=== PATIENT | female | born 1965 | race Caucasian/White ===

== ENCOUNTER → 2018-09-21 | Day surgery (SDC) | payer OTHER ==
--- NOTE | 2018-09-24 17:57 | PATH ---
Cytology Non-Gynecological Report Patient Name: MANJEET TOBIN [facility]. Rec. #: [id number] /Age/Gender: 1965 (Age: 53) / F Account: [id number] Location: RADIOLOGY INTER Taken: 09/21/2018 Received: 09/21/2018 Reported: 09/24/2018 Physicians: Solo Harmon M.D. Specimen(s) Received RIGHT LOBE THYROID FNA Clinical History Right lobe, 3.57 x 1.98 x 1.99 cm Final Diagnosis THYROID, RIGHT LOBE, FINE NEEDLE ASPIRATION: SATISFACTORY FOR EVALUATION. BETHESDA CLASS II: BENIGN. CYTOLOGIC FINDINGS SHOW A BENIGN FOLLICULAR NODULE WITH FEATURES SUGGESTIVE OF CHRONIC LYMPHOCYTIC THYROIDITIS. SMALL FOLLICULAR CELLS DISPERSED CLUSTERS AND SHEETS IN A BACKGROUND OF ABUNDANT COLLOID, SCATTERED LYMPHOCYTES, RARE LYMPHOHISTIOCYTIC AGGREGATES, HEMOSIDERIN LADEN MACROPHAGES, AND LYMPHOID TANGLES PRESENT. Comment: Suggest clinical/radiologic and serologic correlation. Electronically Signed Erin Loomis M.D. Gross Description Received are eight direct smears, four of which are air-dried and Diff-Quik stained, and four of which are alcohol fixed and Pap stained. Also received is 20 ml of bloody formalin from which one cellblock is prepared.
== END | disposition home or self-care (01) ==
LOC: JRADIR 09:19
PROVIDERS: ATTEND Internal Medicine Endocrinology, Diabetes & Metabolism
PROC: 0G9K3ZX Drainage of Thyroid Gland, Percutaneous Approach, Diagnostic (ICD-10-PCS; principal; 2018-09-21)
DX: E04.1 Nontoxic single thyroid nodule (principal)
CPT/HCPCS: 76942; 88173; 88305-TC

== ENCOUNTER 2019-11-12 10:51 | Emergency (ER) | payer OTHER ==
[2019-11-12 10:59] VITALS: PULSE 117; BMI 37.8
--- NOTE | 2019-11-12 10:59 | PDOC ---
Rapid Medical Evaluation Time Seen by Provider: 11/12/19 10:56 Medical Evaluation: 11/12/19 10:57 CC: sent from urgent care clinic for dvt vs PE, calf pain jj, with elevated d dimer, no sob, cp EXam: jj calf tenderness , - homans, lcta, tachy Plan: labs, iv, Discharge Disposition - Diagnosis Calf pain - Referrals - Patient Instructions - Post Discharge Activity
--- NOTE | 2019-11-12 11:31 | PDOC ---
Attending Attestation - Resident Resident Name: Pelon Karimi - ED Attending Attestation I have performed the following: I have examined & evaluated the patient, The case was reviewed & discussed with the resident, I agree w/resident's findings & plan, Exceptions are as noted - HPI HPI: 54 yo F history thyroid nodule sent by urgent care for elevated D-dimer, r/o DVT. Patietn has been having lower extremity pain with ambulation for the past 2 weeks. Improves with rest. Denies swelling, palpitations, cp, SOB. - Physicial Exam PE: GENERAL: Awake, alert, and fully oriented, in no acute distress HEAD: No signs of trauma EYES: PERRLA, EOMI, sclera anicteric, conjunctiva clear ENT: Auricles normal inspection, hearing grossly normal, nares patent, oropharynx clear without exudates. Moist mucosa NECK: Normal ROM, supple, no lymphadenopathy, JVD, or masses LUNGS: Breath sounds equal, clear to auscultation bilaterally. No wheezes, and no crackles HEART: Tachycardic with regular rhythm, normal S1 and S2, no murmurs, rubs or gallops ABDOMEN: Soft, nontender, normoactive bowel sounds. No guarding, no rebound. No masses EXTREMITIES: Normal range of motion, 1+ pitting edema to ankles B/L. No clubbing or cyanosis. No cords, erythema, or tenderness NEUROLOGICAL: Cranial nerves II through XII grossly intact. Normal speech, normal gait. Motor and sensation intact SKIN: Warm, dry, normal turgor, no rashes or lesions noted. - Medical Decision Making Pt with negative DVT study, but with known elevated D-dimer as an outpatient. With persistent tachycardia that is unexplained. CTA chest negative for PE. DC home. Discharge - Discharge Information Problems reviewed: Yes Clinical Impression/Diagnosis: Calf pain Qualifiers: Laterality: unspecified laterality Qualified Code(s): M79.669 - Pain in unspecified lower leg Condition: Stable Disposition: HOME - Follow up/Referral Referrals: Justin Isaac MD [Primary Care Provider] - - Patient Discharge Instructions Patient Printed Discharge Instructions: DI for Leg Pain Additional Instructions: Please make a follow up appointment with your primary care doctor. Your CT scan showed a mildly enlarged right hilar lymph node. This will need a repeat CT scan. Please take Tylenol as needed for your pain. If you experience any new, worsening, or concerning symptoms, including worsening leg pain, swelling, chest pain, palpitations, difficulty breathing, or any other concerns, please return to the emergency department. Lele agnieszka carmine de seguimiento con wolf mdico de atencin primaria. Wolf tomografa computarizada mostr un ganglio linftico hilar derecho levemente agrandado. [place] necesitar repetir la tomografa computarizada. [place] Tylenol segn sea necesario para wolf dolor. Si experimenta algn sntoma nuevo, que empeora o preocupa, incluido un empeoramiento del dolor en las piernas, hinchazn, dolor en el pecho, palpitaciones, dificultad para respirar o cualquier otra inquietud, regrese al departamento de emergencias. - Post Discharge Activity
--- NOTE | 2019-11-12 11:32 | PDOC ---
History of Present Illness - General Chief Complaint: Back Pain Stated Complaint: SENT BY PCP\RT LEG SWOLLEN Time Seen by Provider: 11/12/19 10:56 - History of Present Illness Initial Comments: Yaritza Pool is 54 y/o female with PMH significant for thyroid nodule sent in from urgent care today for elevated D-dimer. Reports that she has been having lower extremity pain for the past two weeks. States that the pain is worse with walking. No falls. No chest pain. No shortness of breath. No headache. No abd pain. Not taking OCPs. No recent travel. Never smoker. Past History - Medical History Allergies/Adverse Reactions: Allergies Allergy/AdvReac Type Severity Reaction Status Date / Time No Known Allergies Allergy Verified 11/12/19 10:59 Home Medications: Ambulatory Orders NK [No Known Home Medication] 11/12/19 COPD: No Thyroid Disease: Yes - Psycho-Social/Smoking History Smoking History: Never smoked Information on smoking cessation initiated: No - Substance Abuse Hx (Audit-C & DAST Scrn) How often the patient has a drink containing alcohol: Never Score: In Men: 4 or > Positive; In Women: 3 or > Positive: 0 Screen Result (Pos requires Nsg. Audit-10AR): Negative Review of Systems - Review of Systems Comments:: GENERAL/CONSTITUTIONAL: No fever or chills. No weakness._ HEAD, EYES, EARS, NOSE AND THROAT: No change in vision. No change in hearing. No sore throat._ CARDIOVASCULAR: No chest pain or shortness of breath_ RESPIRATORY: Denies cough, hemoptysis_ GASTROINTESTINAL: No nausea, vomiting, diarrhea or constipation._ GENITOURINARY: No dysuria, frequency, or change in urination._ MUSCULOSKELETAL: Reports bilateral lower extremity pain. No neck or back pain._ SKIN: No rash_ NEUROLOGIC: No headache, vertigo, loss of consciousness, or change in strength/sensation._ ENDOCRINE: No increased thirst. No abnormal weight change_ HEMATOLOGIC/LYMPHATIC: No anemia, easy bleeding, or history of blood clots._ ALLERGIC/IMMUNOLOGIC: No hives or skin allergy._ *Physical Exam - Vital Signs Last Vital Signs Temp Pulse Resp BP Pulse Ox 98.7 F 117 H 19 115/68 100 11/12/19 10:57 11/12/19 10:57 11/12/19 10:57 11/12/19 10:57 11/12/19 10:57 - Physical Exam GENERAL: Awake, alert, and oriented to person/place/time, in no acute distress_ HEAD: No signs of trauma, normocephalic, atraumatic _ EYES: PERRLA, EOMI, sclera anicteric, conjunctiva clear_ ENT: Hearing grossly normal, nares patent, oropharynx clear without exudates. No uvular deviation. Moist mucosa_ NECK: Normal ROM, supple, no lymphadenopathy, JVD, or masses_ LUNGS: No distress, speaks in full sentences, clear to auscultation bilaterally _ HEART: Regular rate and rhythm, normal S1 and S2, no murmurs appreciated, peripheral pulses normal and equal bilaterally._ ABDOMEN: Soft, nontender, normoactive bowel sounds. No guarding, no rebound. No masses_ EXTREMITIES: Normal inspection, Normal range of motion, 1+ pitting edema. Negative Mariluz's. Negative straight leg bilaterally. TTP bilateral thighs and calves. No clubbing or cyanosis. Warm to touch bilaterally. DP/PT 2+ bilaterally. NEUROLOGICAL: Cranial nerves II through XII grossly intact. Normal speech, normal gait, no focal sensorimotor deficits _ SKIN: Warm, Dry, normal turgor, no rashes or lesions noted_ ED Treatment Course - LABORATORY CBC & Chemistry Diagram: 11/12/19 11:55 11/12/19 11:55 Medical Decision Making - Medical Decision Making 11/12/19 11:31 54F sent in from urgent care for elevated D-dimer. Reports lower extremity pain for the past two weeks. -cbc, cmp -ekg, trop, cxr -coags -tylenol 11/12/19 11:35 EKG shows 107 bpm, sinus tachycardia, no axis deviation, MA 126, QTc 432, no ST elevation/depression. 11/12/19 13:18 US shows no signs of DVT bilaterally. 11/12/19 13:18 CXR negative for acute chest pathology. 11/12/19 13:19 Labs reviewed. Laboratory Last Values WBC 9.3 K/mm3 (4.0-10.0) 11/12/19 11:55 RBC 4.53 M/mm3 (3.60-5.2) 11/12/19 11:55 Hgb 10.5 GM/dL (10.7-15.3) L 11/12/19 11:55 Hct 32.8 % (32.4-45.2) 11/12/19 11:55 MCV 72.4 fl (80-96) L 11/12/19 11:55 MCH 23.1 pg (25.7-33.7) L 11/12/19 11:55 MCHC 31.9 g/dl (32.0-36.0) L 11/12/19 11:55 RDW 14.4 % (11.6-15.6) 11/12/19 11:55 Plt Count 491 K/MM3 (134-434) H 11/12/19 11:55 MPV 7.6 fl (7.5-11.1) 11/12/19 11:55 Absolute Neuts (auto) 6.6 K/mm3 (1.5-8.0) 11/12/19 11:55 Neutrophils % 70.8 % (42.8-82.8) 11/12/19 11:55 Lymphocytes % 16.7 % (8-40) 11/12/19 11:55 Monocytes % 5.7 % (3.8-10.2) 11/12/19 11:55 Eosinophils % 6.0 % (0-4.5) H 11/12/19 11:55 Basophils % 0.8 % (0-2.0) 11/12/19 11:55 Nucleated RBC % 0 % (0-0) 11/12/19 11:55 PT with INR 13.70 SEC (9.7-13.0) H 11/12/19 11:55 INR 1.16 (0.83-1.09) H 11/12/19 11:55 PTT (Actin FS) 28.0 SECONDS (25.2-36.5) 11/12/19 11:55 Sodium 142 mmol/L (136-145) 11/12/19 11:55 Potassium 4.4 mmol/L (3.5-5.1) 11/12/19 11:55 Chloride 108 mmol/L (98-107) H 11/12/19 11:55 Carbon Dioxide 28 mmol/L (21-32) 11/12/19 11:55 Anion Gap 6 MMOL/L (8-16) L 11/12/19 11:55 BUN 11.7 mg/dL (7-18) 11/12/19 11:55 Creatinine 0.6 mg/dL (0.55-1.3) 11/12/19 11:55 Est GFR (CKD-EPI)AfAm 118.09 11/12/19 11:55 Est GFR (CKD-EPI)NonAf 101.89 11/12/19 11:55 Random Glucose 98 mg/dL (74-106) 11/12/19 11:55 Calcium 9.2 mg/dL (8.5-10.1) 11/12/19 11:55 Total Bilirubin 0.2 mg/dL (0.2-1) 11/12/19 11:55 AST 23 U/L (15-37) 11/12/19 11:55 ALT 23 U/L (13-61) 11/12/19 11:55 Alkaline Phosphatase 73 U/L (45-117) 11/12/19 11:55 Creatine Kinase 60 U/L (26-192) 11/12/19 11:55 Troponin I 0.04 ng/ml (0.00-0.05) 11/12/19 11:55 B-Natriuretic Peptide 190.9 pg/ml (5-125) H 11/12/19 11:55 Total Protein 7.3 g/dl (6.4-8.2) 11/12/19 11:55 Albumin 2.7 g/dl (3.4-5.0) L 11/12/19 11:55 11/12/19 13:31 Pt reassessed. HR 98, O2 96% RA. 11/12/19 15:14 Labs reviewed. Laboratory Last Values WBC 9.3 K/mm3 (4.0-10.0) 11/12/19 11:55 RBC 4.53 M/mm3 (3.60-5.2) 11/12/19 11:55 Hgb 10.5 GM/dL (10.7-15.3) L 11/12/19 11:55 Hct 32.8 % (32.4-45.2) 11/12/19 11:55 MCV 72.4 fl (80-96) L 11/12/19 11:55 MCH 23.1 pg (25.7-33.7) L 11/12/19 11:55 MCHC 31.9 g/dl (32.0-36.0) L 11/12/19 11:55 RDW 14.4 % (11.6-15.6) 11/12/19 11:55 Plt Count 491 K/MM3 (134-434) H 11/12/19 11:55 MPV 7.6 fl (7.5-11.1) 11/12/19 11:55 Absolute Neuts (auto) 6.6 K/mm3 (1.5-8.0) 11/12/19 11:55 Neutrophils % 70.8 % (42.8-82.8) 11/12/19 11:55 Lymphocytes % 16.7 % (8-40) 11/12/19 11:55 Monocytes % 5.7 % (3.8-10.2) 11/12/19 11:55 Eosinophils % 6.0 % (0-4.5) H 11/12/19 11:55 Basophils % 0.8 % (0-2.0) 11/12/19 11:55 Nucleated RBC % 0 % (0-0) 11/12/19 11:55 PT with INR 13.70 SEC (9.7-13.0) H 11/12/19 11:55 INR 1.16 (0.83-1.09) H 11/12/19 11:55 PTT (Actin FS) 28.0 SECONDS (25.2-36.5) 11/12/19 11:55 D-Dimer 1791 ng/ml (0-500) H 11/12/19 14:40 Sodium 142 mmol/L (136-145) 11/12/19 11:55 Potassium 4.4 mmol/L (3.5-5.1) 11/12/19 11:55 Chloride 108 mmol/L (98-107) H 11/12/19 11:55 Carbon Dioxide 28 mmol/L (21-32) 11/12/19 11:55 Anion Gap 6 MMOL/L (8-16) L 11/12/19 11:55 BUN 11.7 mg/dL (7-18) 11/12/19 11:55 Creatinine 0.6 mg/dL (0.55-1.3) 11/12/19 11:55 Est GFR (CKD-EPI)AfAm 118.09 11/12/19 11:55 Est GFR (CKD-EPI)NonAf 101.89 11/12/19 11:55 Random Glucose 98 mg/dL (74-106) 11/12/19 11:55 Calcium 9.2 mg/dL (8.5-10.1) 11/12/19 11:55 Total Bilirubin 0.2 mg/dL (0.2-1) 11/12/19 11:55 AST 23 U/L (15-37) 11/12/19 11:55 ALT 23 U/L (13-61) 11/12/19 11:55 Alkaline Phosphatase 73 U/L (45-117) 11/12/19 11:55 Creatine Kinase 60 U/L (26-192) 11/12/19 11:55 Troponin I 0.04 ng/ml (0.00-0.05) 11/12/19 11:55 B-Natriuretic Peptide 190.9 pg/ml (5-125) H 11/12/19 11:55 Total Protein 7.3 g/dl (6.4-8.2) 11/12/19 11:55 Albumin 2.7 g/dl (3.4-5.0) L 11/12/19 11:55 Urine Color Yellow 11/12/19 11:55 Urine Appearance Clear 11/12/19 11:55 Urine pH 6.5 (5.0-8.0) 11/12/19 11:55 Ur Specific [place] 1.018 (1.010-1.035) 11/12/19 11:55 Urine Protein Trace (NEGATIVE) 11/12/19 11:55 Urine Glucose (UA) Negative (NEGATIVE) 11/12/19 11:55 Urine Ketones Negative (NEGATIVE) 11/12/19 11:55 Urine Blood Negative (NEGATIVE) 11/12/19 11:55 Urine Nitrite Negative (NEGATIVE) 11/12/19 11:55 Urine Bilirubin Negative (NEGATIVE) 11/12/19 11:55 Urine Urobilinogen 2.0 mg/dL (0.2-1.0) H 11/12/19 11:55 Ur Leukocyte Esterase Negative (NEGATIVE) 11/12/19 11:55 D-dimer elevated. Will obtain CTA chest. 11/12/19 16:52 CTA chest shows: No CT evidence of pulmonary embolism or other acute intrathoracic pathology. Mild subpleural scarring is seen within the lower chest bilaterally. A mildly enlarged nonspecific 1.3 cm right hilar lymph node is noted. Correlate clinically and with 2 month follow-up contrast enhanced CT to document stability and lack of developing pathology (unless a prior contrast-enhanced CT exam is available from a different facility for direct co mparison). Mild to moderate enlargement of the lower pole of the right thyroid lobe is seen without obvious interval change. Hepatic steatosis. Plan to d/c home with PCP f/u. All questions answered. Return precautions given. Pt verbalized understanding and agreement with plan. Discharge - Discharge Information Problems reviewed: Yes Clinical Impression/Diagnosis: Calf pain Condition: Stable Disposition: HOME - Admission No - Follow up/Referral Referrals: Justin Isaac MD [Primary Care Provider] - - Patient Discharge Instructions Patient Printed Discharge Instructions: DI for Leg Pain Additional Instructions: Please make a follow up appointment with your primary care doctor. Your CT scan showed a mildly enlarged right hilar lymph node. This will need a repeat CT scan. Please take Tylenol as needed for your pain. If you experience any new, worsening, or concerning symptoms, including worsening leg pain, swelling, chest pain, palpitations, difficulty breathing, or any other concerns, please return to the emergency department. Lele agnieszka carmine de seguimiento con wolf mdico de atencin primaria. Wolf tomografa computarizada mostr un ganglio linftico hilar derecho levemente agrandado. [place] necesitar repetir la tomografa computarizada. [place] Tylenol segn sea necesario para wolf dolor. Si experimenta algn sntoma nuevo, que empeora o preocupa, incluido un empeoramiento del dolor en las piernas, hinchazn, dolor en el pecho, palpitaciones, dificultad para respirar o cualquier otra inquietud, regrese al departamento de emergencias. - Post Discharge Activity
[2019-11-12 12:13] LABS: BASO % 0.8 % (0-2.0); HEMATOCRIT 32.8 % (32.4-45.2); HEMOGLOBIN 10.5 GM/dL (10.7-15.3); LYMPH % 16.7 % (8-40); MCH 23.1 pg (25.7-33.7); MCHC 31.9 g/dl (32.0-36.0); MEAN CELL VOLUME 72.4 fl (80-96); MEAN PLT VOLUME 7.6 fl (7.5-11.1); MONO % 5.7 % (3.8-10.2); NEUT % 70.8 % (42.8-82.8); PLATELET COUNT 491 K/MM3 (134-434); RBC 4.53 M/mm3 (3.60-5.2); RDW 14.4 % (11.6-15.6); WHITE BLOOD COUNT 9.3 K/mm3 (4.0-10.0)
[2019-11-12 12:22] LABS: INR 1.16 (0.83-1.09); PROTHROMBIN TIME (PATIENT) 13.7 SEC (9.7-13.0)
[2019-11-12 12:46] LABS: ALBUMIN 2.7 g/dl (3.4-5.0); BILIRUBIN,TOTAL 0.2 mg/dL (0.2-1); BLOOD UREA NITROGEN 11.7 mg/dL (7-18); CALCIUM 9.2 mg/dL (8.5-10.1); CREATININE 0.6 mg/dL (0.55-1.3); POTASSIUM 4.4 mmol/L (3.5-5.1); TOT PROT 7.3 g/dl (6.4-8.2)
[2019-11-12 13:08] LABS: N-TERMINAL BNP 190.9 pg/ml (5-125)
[2019-11-12 13:47] LABS: PH,URINE 6.5 (5.0-8.0); URINE APPEARANCE CLEAR; URINE BILIRUBIN NEGATIVE (NEGATIVE); URINE COLOR YELLOW; URINE GLUCOSE (UA) NEGATIVE (NEGATIVE); URINE KETONE NEGATIVE (NEGATIVE); URINE LEUK ESTERASE NEGATIVE (NEGATIVE); URINE NITRITE NEGATIVE (NEGATIVE); URINE PROTEIN TRACE (NEGATIVE)
--- NOTE | 2019-11-12 16:09 | EKG ---
Test Reason : Blood Pressure : / mmHG Vent. Rate : 107 BPM Atrial Rate : 107 BPM P-R Int : 126 ms QRS Dur : 074 ms QT Int : 324 ms P-R-T Axes : 066 038 019 degrees QTc Int : 432 ms SINUS TACHYCARDIA POSSIBLE LEFT ATRIAL ENLARGEMENT BORDERLINE ECG Confirmed by MD JORGE, JOHNNIE ([id number]) on 11/12/2019 4:09:27 PM Referred By: Confirmed By:JOHNNIE PATEL MD
[2019-11-12] MEDS ORDERED: ACETAMINOPHEN 500 MG TABLET (FP) PO ONE (17:17)
[2019-11-12] MEDS ORDERED: ACETAMINOPHEN 325 MG TABLET (FP) ONE (17:19)
[2019-11-12 17:31] VITALS: BP 103/59; TEMP 100.6
== END 2019-11-12 17:20 | disposition home or self-care (01) ==
LOC: JER 10:51
DX: M79.661 Pain in right lower leg (principal); M79.662 Pain in left lower leg
CPT/HCPCS: 36415; 71045-TC-FY; 71275-TC; 80053; 81003; 82550; 83880; 84484; 85025; 85379; 85610; 85730; 93005; 93010; 93970-TC; 99285-25; Q9967

== ENCOUNTER 2020-01-14 15:16 | Emergency (ER) | payer OTHER ==
[2020-01-14 15:22] VITALS: BP 160/82; PULSE 125; TEMP 98.6; BMI 27.4
--- NOTE | 2020-01-14 15:34 | PDOC ---
Rapid Medical Evaluation Chief Complaint: Palpitations Medical Evaluation: Allergies Allergy/AdvReac Type Severity Reaction Status Date / Time No Known Allergies Allergy Verified 01/14/20 15:18 Vital Signs Temp Pulse Resp BP Pulse Ox 98.6 F 125 H 18 160/82 100 01/14/20 15:20 01/14/20 15:20 01/14/20 15:20 01/14/20 15:20 01/14/20 15:20 01/14/20 15:29 54 yo F c/o palpitations, sob, fatigue, [place] intermittently x 1 month. denies recent travel, cp, back pain, abd pain, f/c. sent from an urgent care center for abnormal ecg. VS: HR 123 speaking full sentences A/P: palpitations labs, trop, cxr, ecg Discharge Disposition - Diagnosis Palpitations - Referrals - Patient Instructions - Post Discharge Activity
--- NOTE | 2020-01-14 17:25 | PDOC ---
History of Present Illness - General Chief Complaint: Palpitations Stated Complaint: CHEST PAIN Time Seen by Provider: 01/14/20 16:56 - History of Present Illness Initial Comments: 01/14/20 18:10 54 F with nodules on thyroid, HTN presented to the ED for abnormal EKG from an urgent care. Her primary concern is her toes numbness; this happened over 4 weeks now. In addition, she has arms tightness for 2 weeks. She denies chest pa in, nausea, vomiting, abdominal pain. 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 ROS GENERAL/CONSTITUTIONAL: No fever or chills. No weakness. HEAD, EYES, EARS, NOSE AND THROAT: No change in vision. No ear pain or discharge. No sore throat. CARDIOVASCULAR: No chest pain or shortness of breath RESPIRATORY: No cough, wheezing, or hemoptysis. GASTROINTESTINAL: No nausea, vomiting, diarrhea or constipation. GENITOURINARY: No dysuria, frequency, or change in urination. MUSCULOSKELETAL: No joint or muscle swelling or pain. No neck or back pain. SKIN: No rash NEUROLOGIC: No headache, vertigo, loss of consciousness, or change in strength/sensation. ENDOCRINE: No increased thirst. No abnormal weight change HEMATOLOGIC/LYMPHATIC: No anemia, easy bleeding, or history of blood clots. ALLERGIC/IMMUNOLOGIC: No hives or skin allergy. PE GENERAL: Awake, alert, and fully oriented, in no acute distress, truncal obesity . Speak Estonian. HEAD: No signs of trauma, normocephalic, atraumatic EYES: PERRLA, EOMI, sclera anicteric, conjunctiva clear ENT: Auricles normal inspection, hearing grossly normal, nares patent, oropharynx clear without, no gross thyromegaly. exudates. Moist mucosa NECK: Normal ROM, supple, no lymphadenopathy, JVD, or masses LUNGS: No distress, speaks full sentences, clear to auscultation bilaterally HEART: Regular rate and rhythm, normal S1 and S2, no murmurs, rubs or gallops, peripheral pulses normal and equal bilaterally. ABDOMEN: Soft, nontender, normoactive bowel sounds. No guarding, no rebound. No masses EXTREMITIES : Normal inspection, Normal range of motion, no edema. No clubbing or cyanosis. NEUROLOGICAL: Cranial nerves II through XII grossly intact. Normal speech, normal gait, no focal sensorimotor deficits SKIN: Warm, Dry, normal turgor, no rashes or lesions noted 01/14/20 19:09 01/14/20 21:20 Past History - Medical History Allergies/Adverse Reactions: Allergies Allergy/AdvReac Type Severity Reaction Status Date / Time No Known Allergies Allergy Verified 01/14/20 15:18 Home Medications: Ambulatory Orders NK [No Known Home Medication] 11/12/19 COPD: No Thyroid Disease: Yes - Immunization History Immunization Up to Date: Yes - Psycho-Social/Smoking History Smoking History: Never smoked - Substance Abuse Hx (Audit-C & DAST Scrn) How often the patient has a drink containing alcohol: Never Score: In Men: 4 or > Positive; In Women: 3 or > Positive: 0 Screen Result (Pos requires Nsg. Audit-10AR): Negative *Physical Exam - Vital Signs Last Vital Signs Temp Pulse Resp BP Pulse Ox 98.6 F 125 H 18 160/82 100 01/14/20 15:20 01/14/20 15:20 01/14/20 15:20 01/14/20 15:20 01/14/20 15:20 ED Treatment Course - LABORATORY CBC & Chemistry Diagram: 01/14/20 15:43 01/14/20 15:43 Medical Decision Making - Medical Decision Making 01/14/20 21:21 54 F with nodules on thyroid, HTN presented to the ED for abnormal EKG from an urgent care. Plan: basic lab work, EKG, chest Xray, UA/UC, TSH, free T4 EKG showed Sinus tachycardia , low voltage qrs, carter rate 113, qtc 449. Lab work came back unremarkable. Trop is negative. TSH and free T4 are within normal limit. Patient was given the report of her old biopsy, labwork. Stable to discharge and follow up with PCP about thyroid problem. Discharge - Discharge Information Problems reviewed: Yes Clinical Impression/Diagnosis: Palpitations Condition: Good Disposition: HOME - Follow up/Referral Referrals: Celestina Baptiste DO [Primary Care Provider] - - Patient Discharge Instructions Patient Printed Discharge Instructions: DI for Hyperthyroidism Additional Instructions: You were seen in the ED for complaints of high heart rate. In the ED you were evaluated with bloodwork Your results were unremarkable. There does not appear to be an acute need for immediate hospitalization. You are advised to follow up with your Primary Care Physician within 1 week. Continue with the appointment to see the endocrine doctor. Return to the ED immediately if you experience worsening heart palpitation, chest pain, nausea vomiting, or any other new symptoms. Fue visto en el servicio de urgencias por quejas de frecuencia cardaca glenn. En el servicio de urgencias te evaluaron con anlisis de ana paula Tus resultados no fueron notables. No parece apollo agnieszka necesidad aguda de hospitalizacin inmediata. Se le recomienda hacer un seguimiento con wolf mdico de atencin primaria en el plazo de 1 semana. Contine con la carmine para elias al mdico endocrino. Regrese al servicio de urgencias de inmediato si experimenta un empeoramiento de las palpitaciones del corazn, dolor de pecho, nuseas, vmitos o cualquier otro sntoma nuevo. Print Language: GREENLAND[place] - Post Discharge Activity
[2020-01-14 17:44] LABS: BASO % 0.6 % (0-2.0); EOS % 5.2 % (0-4.5); HEMATOCRIT 32.6 % (32.4-45.2); HEMOGLOBIN 10.5 GM/dL (10.7-15.3); LYMPH % 19.1 % (8-40); MCH 22.4 pg (25.7-33.7); MCHC 32.3 g/dl (32.0-36.0); MEAN CELL VOLUME 69.3 fl (80-96); MEAN PLT VOLUME 7.9 fl (7.5-11.1); MONO % 3.8 % (3.8-10.2); NEUT % 71.3 % (42.8-82.8); PLATELET COUNT 575 K/MM3 (134-434); RDW 18.4 % (11.6-15.6); WHITE BLOOD COUNT 11.1 K/mm3 (4.0-10.0)
--- OUTSIDE RECORDS SUMMARY | 2020-01-14 17:58 | XMS ---
:1965 Author Organization [facility] Support Name Relationship Address Phone [place] Unavailable [facility] [place] [address] UE Unavailable Unavailable Unavailable WADE RODRIGUEZ FRIEND [address] [place] [address] Bubba, Pilar Unavailable [address] [place] [address] Re-disclosure Warning The records that you are about to access may contain information from federally- assisted alcohol or drug abuse programs. If such information is present, then the following federally mandated warning applies: This information has been disclosed to you from records protected by federal confidentiality rules (42 CFR part 2). The federal rules prohibit you from making any further disclosure of this information unless further disclosure is expressly permitted by the written consent of the person to whom it pertains or as otherwise permitted by 42 CFR part 2. A general authorization for the release of medical or other information is NOT sufficient for this purpose. The Federal rules restrict any use of the information to criminally investigate or prosecute any alcohol or drug abuse patient.The records that you are about to access may contain highly sensitive health information, the redisclosure of which is protected by Article 27-F of the [facility] Public Health law. If you continue you may haveaccess to information: Regarding HIV / AIDS; Provided by facilities licensed or operated by the [facility] Office of Mental Health; or Provided by the [facility] Office for People With Developmental Disabilities. If such information is present, then the following [facility] mandated warning applies: This information has been disclosed to you from confidential records which are protected by state law. State law prohibits you from making any further disclosure of this information without the specific written consent of the person to whom it pertains, or as otherwise permitted by law. Any unauthorized further disclosure in violation of state law may result in a fine or long term sentence or both. A general authorization for the release of medical or other information is NOT sufficient authorization for further disclosure. Allergies and Adverse Reactions Type Description Substance Reaction Status Data Source(s ) No Known Allergies No Known Allergies No Known Allergies eCW3 ([facility]) No Known Allergies No Known Allergies No Known Allergies eCW3 ([facility]) No Known Allergies No Known Allergies No Known Allergies eCW3 ([facility]) No Known Allergies No Known Allergies No Known Allergies eCW3 ([facility]) No Known Allergies No Known Allergies No Known Allergies eCW3 ([facility]) No Known Allergies No Known Allergies No Known Allergies eCW3 ([facility]) No Information No Information No Information eC W2 ([facility]) No Known Allergies No Known Allergies No Known Allergies eCW2 ([facility]) No Known Allergies No Known Allergies No Known Allergies eCW3 ([facility]) No Known Allergies No Known Allergies No known allergies eCW3 ([facility]) No Known Allergies No Known Allergies No known allergies eCW3 ([facility]) Encounters Encounter Providers Location Date Indications Data Source(s ) Outpatient [facility] 01/28/2019 eCW3 ([facility] 12:00:00 AM [facility] EDT - Care) 01/28/2019 12:00:00 AM EDT Outpatient [facility] 01/18/2019 eCW3 ([facility] 12:00:00 AM [facility] EDT - Care) 01/18/2019 12:00:00 AM EDT Outpatient [facility] 10/24/2018 eCW3 ([facility] 12:00:00 AM [facility] EDT - Care) 10/24/2018 12:00:00 AM EDT Outpatient [facility] 10/02/2018 eCW3 ([facility] 12:00:00 AM [facility] EDT - Care) 10/02/2018 12:00:00 AM EDT Outpatient [facility] 09/03/2018 eCW3 ([facility] 12:00:00 AM [facility] EDT - Care) 09/03/2018 12:00:00 AM EDT Outpatient [facility] 08/23/2018 eCW3 ([facility] 12:00:00 AM [facility] EDT - Care) 08/23/2018 12:00:00 AM EDT Outpatient [facility] 07/06/2018 eCW3 ([facility] A28 12:00:00 AM [facility] EDT - Care) 07/06/2018 12:00:00 AM EDT Outpatient [facility] 06/20/2018 eCW3 ([facility] A28 12:00:00 AM [facility] EST - Care) 06/20/2018 12:00:00 AM [facility] 05/21/2018 eCW2 ([facility] 12:[facility]:00 AM [facility] EST Care) [facility] 05/21/2018 eCW3 ([facility] A28 12:00:00 AM [facility] EST - Care) 05/21/2018 12:00:00 AM [facility] 05/07/2018 eCW2 ([facility] 12:00:00 [facility]) [facility] 04/30/2018 eCW2 ([place] [facility] 12:00:00 [facility] Care) [facility] 03/19/2018 eCW2 ([facility] 12:00:[facility]) [facility] 02/01/2018 eCW2 ([place] [facility] 12:00:00 AM [facility] EDT Care) [facility] 01/23/2018 eCW2 ([place] [facility] 12:00:[facility]) [facility] 01/10/2018 eCW2 ([place] [facility] 12:00:[facility] ED[facility]) Immunizations Vaccine Date Status Description Data Source(s) No Known Immunizations completed eCW2 ([facility]) No Known Immunizations completed eCW2 ([facility]) Medications Medication Brand Start Product Dose Route Administrative Pharmacy St atus Indications Reaction Description Data Name Date Form Instructions Instructions Source(s) ferrous Ferrou .0 active Ferrous eCW 3 sulfate 325 s 2019 {tabl Sulfate 325 ([facility] Oral Sulfat 12:00: et} (65 Fe) MG Ri elias Tablet e 325 00 AM Health Ferrous (65 EDT Care) Sulfate 325 Fe) MG (65 Fe) MG Docusate Colace .0 active Colace 100 eCW3 Sodium 100 100 MG 2020 {caps MG ([place] [facility] Oral 12:00: ule_a [place] Capsule 00 AM s_ne Health [Colace] EDT ded} Care) Colace 100 MG ferrous Ferrou .0 active Ferrous eCW 3 sulfate 325 s 2020 {tabl Sulfate 325 ([facility] Oral Sulfat 12:00: et} (65 Fe) MG Ri elias Tablet e 325 00 AM Health Ferrous (65 EDT Care) Sulfate 325 Fe) MG (65 Fe) MG Vitamin C Vitami .0 active Vitamin C eCW3 Plus Wild n C 2019 {tabl Plus Wild (Semaj Hutchinson Hips Plus 12:00: et} Evangelina [facility] [place] [facility] 500 MG Wild 00 AM 500 MG [facility] EDT Care) Hips 500 MG Docusate Colace .0 active Colace 100 eCW3 Sodium 100 100 MG 2020 {caps MG ([place] MG Oral 12:00: ule_a [place] Capsule 00 AM s_ne Health [Colace] EDT ded} Care) Colace 100 MG Vitamin C Vitami .0 active Vitamin C eCW3 Plus Wild n C 2020 {tabl Plus Wild (Semaj Hutchinson Hips Plus 12:00: et} Evangelina Hips [place] [facility] 500 MG Wild 00 AM 500 MG [facility] EDT Care) Hips 500 MG Daily Daily 07/04/ active Daily eCW3 Multivitami Multiv 2020 Multivitami n ([facility] n - itamin 12:00: - [place] - 00 AM Health EDT Care) Daily Daily 07/04/ active Daily eCW3 Multivitami Multiv 2020 Multivitami n ([facility] n - itamin 12:00: - [place] - 00 AM Health EDT Care) Collagen-Ch UNK 01/28/ active Collagen- Cho eCW3 ond-Hyaluro 2018 nd-Hyaluroni ([facility] shay Acid 12:00: c Acid [place] 400-80-30 00 AM 400-80-30 MG H ealth MG EDT Care) Collagen-Ch UNK 01/28/ suspend Collagen -Cho eCW3 ond-Hyaluro 2019 ed nd-Hyaluroni ([facility] shay Acid 12:00: c Acid [place] 400-80-30 00 AM 400-80-30 MG H ealth MG EDT Care) Collagen-Ch UNK 01/28/ active Collagen- Cho eCW3 ond-Hyaluro 2019 nd-Hyaluroni ([facility] shay Acid 12:00: c Acid [place] 400-80-30 00 AM 400-80-30 MG H ealth MG EDT Care) Vitamin D UNK .0 active Vitamin D e CW3 (Ergocalcif 2019 {caps (Ergocalcife ([facility] jose) 25574 12:00: ule} rol) 47800 [place] UNIT 00 AM UNIT Health EDT Care) Collagen-Ch UNK 01/28/ active Collagen- Cho eCW3 ond-Hyaluro 2019 nd-Hyaluroni ([facility] shay Acid 12:00: c Acid [place] 400-80-30 00 AM 400-80-30 MG H ealth MG EDT Care) Vitamin D UNK 1.0 active Vitamin D e CW3 (Ergocalcif 2018 {caps (Ergocalcife ([facility] jose) 17344 12:00: ule} rol) 32804 [place] UNIT 00 AM UNIT Health EDT Care) Collagen-Ch UNK 01/28/ suspend Collagen -Cho eCW3 ond-Hyaluro 2019 ed nd-Hyaluroni ([facility] shay Acid 12:00: c Acid [place] 400-80-30 00 AM 400-80-30 MG H ealth MG EDT Care) Vitamin D UNK 1.0 active Vitamin D e CW3 (Ergocalcif 2018 {caps (Ergocalcife ([facility] jose) 22436 12:00: ule} rol) 32789 [place] UNIT 00 AM UNIT Health EDT Care) Vitamin D UNK 1.0 active Vitamin D e CW3 (Ergocalcif 2019 {caps (Ergocalcife ([facility] jose) 68207 12:00: ule} rol) 83249 [place] UNIT 00 AM UNIT Health EDT Care) Collagen-Ch UNK 01/28/ active Collagen- Cho eCW3 ond-Hyaluro 2018 nd-Hyaluroni ([facility] shay Acid 12:00: c Acid [place] 400-80-30 00 AM 400-80-30 MG H ealth MG EDT Care) Hydroxyzine HydrOX .0 suspend HydrOX Yzine eCW3 Hydrochlori Yzine 2018 {tabl ed HCl 50 MG ( [facility] de 50 MG HCl 50 12:00: et_as [place] Oral Tablet MG 00 AM _need Health HydrOXYzine EDT ed} Care) HCl 50 MG Hydroxyzine HydrOX .0 active HydrOXY zine eCW3 Hydrochlori Yzine 2018 {tabl HCl 50 MG ( [facility] de 50 MG HCl 50 12:00: et_as [place] Oral Tablet MG 00 AM _need Health HydrOXYzine EDT ed} Care) HCl 50 MG Hydroxyzine HydrOX .0 suspend HydrOX Yzine eCW3 Hydrochlori Yzine 2018 {tabl ed HCl 50 MG ( [facility] de 50 MG HCl 50 12:00: et_as [place] Oral Tablet MG 00 AM _need Health HydrOXYzine EDT ed} Care) HCl 50 MG Hydroxyzine HydrOX .0 active HydrOXY zine eCW3 Hydrochlori Yzine 2018 {tabl HCl 50 MG ( [facility] de 50 MG HCl 50 12:00: et_as [place] Oral Tablet MG 00 AM _need Health HydrOXYzine EDT ed} Care) HCl 50 MG Hydroxyzine HydrOX .0 active HydrOXY zine eCW3 Hydrochlori Yzine 2018 {tabl HCl 50 MG ( [facility] de 50 MG HCl 50 12:00: et_as [place] Oral Tablet MG 00 AM _need Health HydrOXYzine EDT ed} Care) HCl 50 MG Hydroxyzine HydrOX .0 active HydrOXY zine eCW3 Hydrochlori Yzine 2018 {tabl HCl 50 MG ( [facility] de 50 MG HCl 50 12:00: et_as [place] Oral Tablet MG 00 AM _need Health HydrOXYzine EDT ed} Care) HCl 50 MG Melatonin Melato 10/24/ active Melatonin 10 eCW3 10 mg leti 10 2019 mg ([facility] mg 12:00: [facility] 00 AM Health EDT Care) Melatonin Melato 07// suspend Melatoni n 10 eCW3 10 mg leti 2018 ed mg ([facility] mg 12:00: [facility] 00 AM Health EDT Care) Melatonin Melato 07// active Melatonin 10 eCW3 10 mg leti 2019 mg ([facility] mg 12:00: [facility] 00 AM Health EDT Care) Melatonin Melato 07// suspend Melatoni n 10 eCW3 10 mg 2018 ed mg ([facility] mg 12:00: [facility] 00 AM Health EDT Care) Melatonin Melato 07// active Melatonin 10 eCW3 10 mg leti 2018 mg ([facility] mg 12:00: [facility] 00 AM Health EDT Care) Melatonin Melato 07// active Melatonin 10 eCW3 10 mg leti 2018 mg ([facility] mg 12:00: [facility] 00 AM Health EDT Care) Melatonin Melato 07// active Melatonin 10 eCW3 10 mg leti 2018 mg ([facility] mg 12:00: [facility] 00 AM Health EDT Care) RA Panty RA 07/06/ active RA Panty eCW 3 Liners - Panty 2019 Liners - ([place] Liners 12:00: [facility] - 00 AM Health EDT Care) RA Panty RA 07/06/ active RA Panty eCW 3 Liners - Panty 2019 Liners - ([place] Liners 12:00: [facility] - 00 AM Health EDT Care) RA Panty RA 07/06/ active RA Panty eCW 3 Liners - Panty 2019 Liners - ([place] Liners 12:00: [facility] - 00 AM Health EDT Care) ammonium Lac-Hy 07/06/ 1.0 active Lac-Hydrin eCW3 lactate 120 drin 2018 {appl 12 % ([facility] MG/ML 12 % 12:00: icati [place] Topical 00 AM on_to Health Cream EDT _affe Care) [Lac-Hydrin cted_ ] area} Lac-Hydrin 12 % RA Panty RA 07/06/ active RA Panty eCW 3 Liners - Panty 2019 Liners - ([place] Liners 12:00: [facility] - 00 AM Health EDT Care) RA Panty RA 07/06/ active RA Panty eCW 3 Liners - Panty 2019 Liners - ([place] Liners 12:00: [facility] - 00 AM Health EDT Care) RA Panty RA 07/06/ active RA Panty eCW 3 Liners - Panty 2019 Liners - ([place] Liners 12:00: [facility] - 00 AM Health EDT Care) RA Panty RA 07/06/ active RA Panty eCW 3 Liners - Panty 2019 Liners - ([place] Liners 12:00: [facility] - 00 AM Health EDT Care) RA Panty RA 07/06/ active RA Panty eCW 3 Liners - Panty 2019 Liners - ([place] Liners 12:00: [facility] - 00 AM Health EDT Care) ammonium Lac-Hy .0 active Lac-Hydrin eCW3 lactate 120 2018 {appl 12 % ([facility] MG/ML 12 % 12:00: icati [place] Topical 00 AM on_to Health Cream EDT _affe Care) [Lac-Hydrin cted_ ] area} Lac-Hydrin 12 % ammonium Lac-Hy .0 active Lac-Hydrin eCW3 lactate 120 2018 {appl 12 % ([facility] MG/ML 12 % 12:00: icati [place] Topical 00 AM on_to Health Cream EDT _affe Care) [Lac-Hydrin cted_ ] area} Lac-Hydrin 12 % RA Giselly RA 07/06/ active RA Panty eCW 3 Liners - Panty 2019 Liners - ([place] Liners 12:00: [facility] - 00 AM Health EDT Care) Lidocaine 5 Lidoca 06/20/ suspend Lidoca ine 5 eCW3 % ine 5 2019 ed % (Hall % 12:00: [facility] 00 AM Health EST Care) Lidocaine 5 Lidoca 06/20/ suspend Lidoca ine 5 eCW3 % ine 5 2019 ed % (Hall % 12:00: [facility] 00 AM Health EST Care) Lidocaine 5 Lidoca 06/20/ suspend Lidoca ine 5 eCW3 % ine 5 2019 ed % (Hall % 12:00: [facility] 00 AM Health EST Care) Lidocaine 5 Lidoca 06/20/ suspend Lidoca ine 5 eCW3 % ine 5 2019 ed % (Hall % 12:00: [facility] 00 AM Health EST Care) Lidocaine 5 Lidoca 06/20/ suspend Lidoca ine 5 eCW3 % ine 5 2019 ed % (Hall % 12:00: [facility] 00 AM Health EST Care) Lidocaine 5 Lidoca 06/20/ suspend Lidoca ine 5 eCW3 % ine 5 2019 ed % (Hall % 12:00: [facility] 00 AM Health EST Care) Lidocaine 5 Lidoca 06/20/ suspend Lidoca ine 5 eCW3 % ine 5 2019 ed % (Hall % 12:00: [facility] 00 AM Health EST Care) Lidocaine 5 Lidoca 06/20/ suspend Lidoca ine 5 eCW3 % ine 5 2019 ed % (Hall % 12:00: [facility] 00 AM Health EST Care) Lidocaine 5 Lidoca 06/20/ suspend Lidoca ine 5 eCW3 % ine 5 2019 ed % (Hall % 12:00: [facility] 00 AM Health EST Care) Polyvinyl Artifi 05/21/ active Artificia l eCW3 Alcohol cial 2018 Tears 1.4 % ([place] 0.014 ML/ML Tears 12:00: [place] Ophthalmic 1.4 % 00 AM Health Solution EST Care) Artificial Tears 1.4 % Polyvinyl Artifi 05/21/ active Artificia l eCW3 Alcohol cial 2018 Tears 1.4 % ([place] 0.014 ML/ML Tears 12:00: [facility] Ophthalmic 1.4 % 00 AM Health Solution EST Care) Artificial Tears 1.4 % Polyvinyl Artifi 05/21/ active Artificia l eCW3 Alcohol cial 2018 Tears 1.4 % ([place] 0.014 ML/ML Tears 12:00: [place] Ophthalmic 1.4 % 00 AM Health Solution EST Care) Artificial Tears 1.4 % Hydrocortis Neomyc .0 suspend Neomyc in-Akira eCW3 one 10 in-Akira 2018 {drop ed ymyxin-HC ([place] MG/ML / ymyxin 12:00: _into 3.5-58666-9 [place] Neomycin -HC 00 AM _[facility] Health 3.5 MG/ML / 3.5-10 EST cted_ Care) Polymyxin B 000-1 eye} 09019 UNT/ML Otic Suspension Neomycin-Po lymyxin-HC 3.5-98483-8 Hydrocortis Neomyc .0 suspend Neomyc in-Akira eCW3 one 10 in-Akira 2018 {drop ed ymyxin-HC ([place] MG/ML / ymyxin 12:00: _into 3.5-71443-9 [place] Neomycin -HC 00 AM _[facility] 3.5 MG/ML / 3.5-10 EST cted_ Care) Polymyxin B 000-1 eye} 90654 UNT/ML Otic Suspension Neomycin-Po lymyxin-HC 3.5-10087-1 Hydrocortis Neomyc .0 suspend Neomyc in-Akira eCW3 one inAkira 2018 {drop ed ymyxin-HC ([place] [facility] MG/ML / ymyxin 12:00: _into 3.5-77734-0 [place] Neomycin -HC 00 AM _[facility] 3.5 MG/ML / 3.5-10 EST cted_ Care) Polymyxin B 000-1 eye} 82929 UNT/ML Otic Suspension Neomycin-Po lymyxin-HC 3.5-02410-3 Hydrocortis Neomyc .0 suspend Neomyc in-Akira eCW3 one inAkira 2018 {drop ed ymyxin-HC ([place] MG/ML / ymyxin 12:00: _into 3.5-25881-6 [place] Neomycin -HC 00 AM _[facility] 3.5 MG/ML / 3.5-10 EST cted_ Care) Polymyxin B 000-1 eye} 85502 UNT/ML Otic Suspension Neomycin-Po lymyxin-HC 3.5-66414-3 Hydrocortis Neomyc .0 suspend Neomyc in-Akira eCW3 one inAkira 2018 {drop ed ymyxin-HC ([place] MG/ML / ymyxin 12:00: _into 3.5-29082-3 [place] Neomycin -HC 00 AM _[facility] 3.5 MG/ML / 3.5-10 EST cted_ Care) Polymyxin B 000-1 eye} 78234 UNT/ML Otic Suspension Neomycin-Po lymyxin-HC 3.5-81385-3 Hydrocortis Neomyc 1.0 suspend Neomyc in-Akira eCW3 one inAkira 2018 {drop ed ymyxin-HC ([place] MG/ML / ymyxin 12:00: _into 3.5-42981-3 [place] Neomycin -HC 00 AM _[facility] 3.5 MG/ML / 3.5-10 EST cted_ Care) Polymyxin B 000-1 eye} 18824 UNT/ML Otic Suspension Neomycin-Po lymyxin-HC 3.5-49830-2 Hydrocortis Neomyc 1.0 suspend Neomyc in-Akira eCW3 one inAkira 2018 {drop ed ymyxin-HC ([place] MG/ML / ymyxin 12:00: _into 3.5-29843-9 [place] Neomycin -HC 00 AM _[facility] 3.5 MG/ML / 3.5-10 EST cted_ Care) Polymyxin B 000-1 eye} 03773 UNT/ML Otic Suspension Neomycin-Po lymyxin-HC 3.5-13334-4 Hydrocortis Neomyc 1.0 suspend Neomyc in-Akira eCW3 one inAkira 2018 {drop ed ymyxin-HC ([place] MG/ML / ymyxin 12:00: _into 3.5-89433-2 [place] Neomycin -HC 00 AM _[facility] 3.5 MG/ML / 3.5-10 EST cted_ Care) Polymyxin B 000-1 eye} 40930 UNT/ML Otic Suspension Neomycin-Po lymyxin-HC 3.5-54472-2 Hydrocortis Neomyc 1.0 suspend Neomyc in-Akira eCW3 inAkira 2018 {drop ed ymyxin-HC ([place] MG/ML / ymyxin 12:00: _into 3.5-27322-1 [place] Neomycin -HC 00 AM _[facility] 3.5 MG/ML / 3.5-10 EST cted_ Care) Polymyxin B 000-1 eye} 95278 UNT/ML Otic Suspension Neomycin-Po lymyxin-HC 3.5-95420-6 Levothyroxi Synthr 02/01/ suspend Synthr oid 25 eCW3 ne Sodium oid 25 2017 ed MCG ([facility] 0.025 MG MCG 12:00: [place] Oral Tablet 00 AM Health [Synthroid] EDT Care) Synthroid 25 MCG Levothyroxi Synthr 02/01/ suspend Synthr oid 25 eCW3 ne Sodium oid 25 2017 ed MCG ([facility] 0.025 MG MCG 12:00: [place] Oral Tablet 00 AM Health [Synthroid] EDT Care) Synthroid 25 MCG Levothyroxi Synthr 02/01/ suspend Synthr oid 25 eCW3 ne Sodium oid 25 2017 ed MCG (Hall 0.025 MG MCG 12:00: [place] Oral Tablet 00 AM Health [Synthroid] EDT Care) Synthroid 25 MCG Vitamin D UNK 1.0 suspend Vitamin D eCW3 (Ergocalcif 2017 {caps ed (Ergocalcife (Hall jose) 04655 12:00: ule} rol) 84750 [place] UNIT 00 AM UNIT Health EDT Care) Vitamin D UNK .0 suspend Vitamin D eCW3 (Ergocalcif 2017 {caps ed (Ergocalcife (Hall jose) 12:00: ule} rol) 72445 [place] UNIT 00 AM UNIT Health EDT Care) Vitamin D UNK .0 active Vitamin D e CW3 (Ergocalcif 2017 {caps (Ergocalcife (Hall jose) 12:00: ule} rol) 23593 [place] UNIT 00 AM UNIT Health EDT Care) Levothyroxi Synthr 02/01/ suspend Synthr oid 25 eCW3 ne Sodium oid 2017 ed MCG (Hall 0.025 MG MCG 12:00: [place] Oral Tablet 00 AM Health [Synthroid] EDT Care) Synthroid 25 MCG Vitamin D UNK .0 active Vitamin D e CW3 (Ergocalcif 2017 {caps (Ergocalcife (Hall jose) 12:00: ule} rol) 48885 [place] UNIT 00 AM UNIT Health EDT Care) Ergocalcife Vitami 02/01/ active 1 capsu le eCW2 rol 64420 n D 2017 (Hall UNT Oral (Ergoc 12:00: [place] Capsule alcife 00 AM Health Vitamin D rol) EDT Care) (Ergocalcif 59860 jose) 62522 UNIT UNIT Levothyroxi Synthr 02/01/ suspend Synthr oid 25 eCW3 ne Sodium oid 25 2017 ed MCG (Hall 0.025 MG MCG 12:00: [place] Oral Tablet 00 AM Health [Synthroid] EDT Care) Synthroid 25 MCG Levothyroxi Synthr 02/01/ suspend Synthr oid 25 eCW3 ne Sodium oid 25 2017 ed MCG (Hall 0.025 MG MCG 12:00: [place] Oral Tablet 00 AM Health [Synthroid] EDT Care) Synthroid 25 MCG Levothyroxi Synthr 02/01/ suspend Synthr oid 25 eCW3 ne Sodium oid 25 2017 ed MCG (Hall 0.025 MG MCG 12:00: [place] Oral Tablet 00 AM Health [Synthroid] EDT Care) Synthroid 25 MCG Ergocalcife Vitami 1.0 active Vitamin D eCW3 rol 76268 n D 2017 {caps (Ergocalcife ( Hall UNT Oral (Ergoc 12:00: ule} rol) 76817 [place] Capsule alcife 00 AM UNIT Health Vitamin D rol) EDT Care) (Ergocalcif 76678 jose) 44298 UNIT UNIT Levothyroxi Synthr 02/01/ suspend Synthr oid 25 eCW3 ne Sodium oid 2017 ed MCG (Hall 0.025 MG MCG 12:00: [place] Oral Tablet 00 AM Health [Synthroid] EDT Care) Synthroid 25 MCG Vitamin D UNK .0 active Vitamin D e CW3 (Ergocalcif 2017 {caps (Ergocalcife (Hall jose) 74215 12:00: ule} rol) 76877 [place] UNIT 00 AM UNIT Health EDT Care) Levothyroxi Synthr 02/01/ active 1 table t on eCW2 ne Sodium oid 2017 an empty ([facility] 0.025 MG MCG 12:00: stomach in [place] [facility] Oral Tablet 00 AM the morning Health [Synthroid] EDT Care) Synthroid 25 MCG Vitamin D UNK 1.0 active Vitamin D e CW3 (Ergocalcif 2017 {caps (Ergocalcife (Hall jose) 92095 12:00: ule} rol) 64062 [place] UNIT 00 AM UNIT Health EDT Care) Ergocalcife Vitami .0 active Vitamin D eCW3 rol 84622 n D 2017 {caps (Ergocalcife ( Hall UNT Oral (Ergoc 12:00: ule} rol) 26440 R i[place] Capsule alcife 00 AM UNIT Health Vitamin D rol) EDT Care) (Ergocalcif 81601 jose) 41663 UNIT UNIT Levothyroxi Synthr 02/01/ suspend Synthr oid 25 eCW3 ne Sodium oid 25 2018 ed MCG (Hall 0.025 MG MCG 12:00: [place] Oral Tablet 00 AM Health [Synthroid] EDT Care) Synthroid 25 MCG Ergocalcife Vitami 02/01/ 1.0 active Vitamin D eCW3 rol 76185 n D 2018 {caps (Ergocalcife ( Hall UNT Oral (Ergoc 12:00: ule} rol) 73872 [facility] i[facility] Capsule alcife 00 AM UNIT Health Vitamin D rol) EDT Care) (Ergocalcif 82591 jose) 17127 UNIT UNIT Oxybutynin Oxybut 01/10/ active 1 tablet eCW2 chloride 5 ynin 2017 (Hall MG Oral Chlori 12:00: [place] Tablet de 5 00 AM [facility] Oxybutynin MG EDT Care) Chloride 5 MG Biotin 0.3 Biotin 01/10/ active 1 tablet eCW2 MG Oral 300 2017 (Hall Tablet MCG 12:00: [place] Biotin 300 00 AM Health MCG EDT Care) Omeprazole Omepra 01/10/ active 1 tablet eCW2 20 MG zole 2017 (Hall Delayed 20 MG 12:00: [place] Release 00 AM Health Oral Tablet EDT Care) Daily Daily active Daily eCW3 Multivitami Multiv Multivitami n (Hall n - itamin - [facility]) Omeprazole Omepra 1.0 active Omeprazole eCW3 20 MG zole {tabl 20 MG (Hall Delayed 20 MG et} [place] Release [facility] Oral Tablet Care) Daily Daily active Daily eCW3 Multivitami Multiv Multivitami n (Hall n - itamin - [facility]) Levothyroxi Levoth active Levothyro nehemiah eCW3 ne Sodium yroxin e Sodium 25 ( [facility] 0.025 MG e MCG [place] Oral Tablet Sodium Health Levothyroxi 25 MCG Care) ne Sodium 25 MCG Ketotifen Zadito 1.0 active Zaditor eCW 3 0.25 MG/ML r {drop 0.025 % ([place] Ophthalmic 0.025 _into [place] Solution % _affe Health [Zaditor] cted_ Care) Zaditor eye} 0.025 % Levothyroxi Levoth active Levothyro nehemiah eCW3 ne Sodium yroxin e Sodium 50 ( Hall 0.05 MG e MCG [place] Oral Tablet Sodium Health Levothyroxi 50 MCG Care) ne Sodium 50 MCG Levothyroxi Levoth active Levothyro nehemiah eCW3 ne Sodium yroxin e Sodium 50 ( Hall 0.05 MG e MCG [place] Oral Tablet Sodium Health Levothyroxi 50 MCG Care) ne Sodium 50 MCG Omeprazole Omepra 1.0 active Omeprazole eCW3 20 MG zole {tabl 20 MG (Hall Delayed 20 MG et} [facility] Health Oral Tablet Care) Omeprazole Omepra 1.0 active Omeprazole eCW3 20 MG zole {tabl 20 MG (Hall Delayed 20 MG et} [facility] Oral Tablet Care) Levothyroxi Levoth suspend Levothyr oxin eCW3 ne Sodium yroxin ed e Sodium 50 ( Hall 0.05 MG e MCG [place] Oral Tablet Sodium Health Levothyroxi 50 MCG Care) ne Sodium 50 MCG Omeprazole Omepra 1.0 active Omeprazole eCW3 20 MG zole {tabl 20 MG (Hall Delayed 20 MG et} [facility] Oral Tablet Care) Ketotifen Zadito 1.0 active Zaditor eCW 3 0.25 MG/ML r {drop 0.025 % ([facility] on Ophthalmic 0.025 _into [place] Solution % _[facility] [Zaditor] cted_ Care) Zaditor eye} 0.025 % Levothyroxi Levoth active Levothyro nehemiah eCW3 ne Sodium yroxin e Sodium 50 ( Hall 0.05 MG e MCG [place] Oral Tablet Sodium Health Levothyroxi 50 MCG Care) ne Sodium 50 MCG Daily Daily active Daily eCW3 Multivitami Multiv Multivitami n ([place] n - itamin - [facility]) Unknown complet eCW2 Medications ed ([facility]) Mirtazapine Mirtaz 1.0 active Mirtazapi ne eCW3 7.5 MG Oral apine {tabl 7.5 MG ([facility] Tablet 7.5 MG ets_a [place] t_bed Health time} Care) Levothyroxi Levoth active Levothyro nehemiah eCW3 ne Sodium yroxin e Sodium 50 ( Hall 0.05 MG e MCG [place] Oral Tablet Sodium Health Levothyroxi 50 MCG Care) ne Sodium 50 MCG Levothyroxi Levoth suspend Levothyr oxin eCW3 ne Sodium yroxin ed e Sodium 50 ( [facility] 0.05 MG e MCG [facility] Oral Tablet Sodium Health Levothyroxi 50 MCG Care) ne Sodium 50 MCG Ketotifen Zadito 1.0 active Zaditor eCW 3 0.25 MG/ML r {drop 0.025 % ([place] [facility] 0.025 _into [facility] Solution % _affe [facility] [Zaditor] cted_ Care) Zaditor eye} 0.025 % Omeprazole Omepra 1.0 active Omeprazole eCW3 20 MG zole {tabl 20 MG ([facility] Delayed 20 MG et} [facility] Oral Tablet Care) Omeprazole Omepra 1.0 active Omeprazole eCW3 20 MG zole {tabl 20 MG ([facility] Delayed 20 MG et} [facility] Oral Tablet Care) Mirtazapine Mirtaz 1.0 active Mirtazapi ne eCW3 7.5 MG Oral apine {tabl 7.5 MG ([facility] Tablet 7.5 MG ets_a [facility] t_bed Health time} Care) Levothyroxi Levoth active Levothyro nehemiah eCW3 ne Sodium yroxin e Sodium 25 ( [facility] 0.025 MG e MCG [facility] Oral Tablet Sodium Health Levothyroxi 25 MCG Care) ne Sodium 25 MCG Levothyroxi Levoth active Levothyro nehemiah eCW3 ne Sodium yroxin e Sodium 50 ( [facility] 0.05 MG e MCG [facility] Oral Tablet Sodium Health Levothyroxi 50 MCG Care) ne Sodium 50 MCG Ketotifen Zadito 1.0 active Zaditor eCW 3 0.25 MG/ML r {drop 0.025 % ([facility] 0.025 _into [facility] Solution % _[facility] [Zaditor] cted_ Care) Zaditor eye} 0.025 % Omeprazole Omepra 1.0 active Omeprazole eCW3 20 MG zole {tabl 20 MG ([facility] Delayed 20 MG et} [facility] Oral Tablet Care) Omeprazole Omepra 1.0 suspend Omeprazol e eCW3 20 MG zole {tabl ed 20 MG ([facility] Delayed 20 MG et} [facility] Tablet [facility]) Omeprazole Omepra 1.0 suspend Omeprazol e eCW3 20 MG zole {tabl ed 20 MG ([facility]af[facility] Delayed 20 MG et} [facility]) Daily Daily active Daily eCW3 Multivitami Multiv Multivitami n ([place] - itamin - [facility]) Insurance Providers Payer name Policy type Policy ID Covered Covered green party's Policy P irais / Coverage green party ID relationship to [facility] Inf ormation type [facility] [id number] SP [id number] MEDICAID COMM [facility] [id number] SP [id number] MEDICAID COMM [facility] [id number] SP [id number] MEDICAID COMM [facility] [id number] SP [id number] MEDICAID COMM PLAN Problems, Conditions, and Diagnoses Code Display Name Description Problem Type Effective Data Dates Source(s) D50.9 Iron deficiency Iron deficiency Problem 11/18/2019 eCW3 ([facility] anemia, unspecified anemia, unspecified 12:00:0 0 AM [facility] iron deficiency iron deficiency EDT Care ) anemia type anemia type J30.2 Seasonal allergies Seasonal allergies Problem 0 eCW3 ([facility] 12:00:00 AM [facility] EDT Care) J30.2 Seasonal allergies Seasonal allergies Problem 0 eCW3 ([facility] 12:00:00 AM [facility] EDT Care) E04.2 Multinodular Multinodular Problem 07/05/2019 eCW3 ([place] thyroid thyroid 12:00:00 AM [facility] EDT Care) E04.2 Multinodular Multinodular Problem 07/05/2019 eCW3 ([place] thyroid thyroid 12:00:00 AM [facility] EDT Care) E04.2 Multinodular Multinodular Problem 07/05/2019 eCW3 ([place] thyroid thyroid 12:00:00 AM [facility] EDT Care) G47.30 Sleep apnea in Sleep apnea in Problem 06/06/2019 eCW3 ( [facility] adult adult 12:00:00 AM [facility] EST Care) G47.30 Sleep apnea in Sleep apnea in Problem 06/06/2019 eCW3 ( [facility] adult adult 12:00:00 AM [facility] EST Care) N85.00 Endometrial Endometrial Problem 01/18/2019 eCW3 ([facility] hyperplasia hyperplasia 12:00:00 [facility]) E03.9 Subclinical Subclinical Problem 10/02/2018 eCW3 ([facility] hypothyroidism hypothyroidism 12:00:00 AM [facility] EDT Care) E03.9 Subclinical Subclinical Problem 10/02/2018 eCW3 ([facility] hypothyroidism hypothyroidism 12:00:00 AM [facility] EDT Care) E04.2 Multinodular goiter Multinodular goiter Problem 019 eCW3 ([facility] 12:00:00 AM [facility] EDT Care) E04.2 Multinodular goiter Multinodular goiter Problem 019 eCW3 ([facility] 12:00:00 AM [facility] EDT Care) N81.10 Female bladder Female bladder Problem 07/06/2018 eCW3 ( [facility] prolapse prolapse 12:00:00 AM [facility] EDT Care) E03.9 Hypothyroidism Hypothyroidism Problem 07/06/2018 eCW3 ( [facility] (acquired) (acquired) 12:00:00 AM [facility] EDT Care) N81.10 Female bladder Female bladder Problem 07/06/2018 eCW3 ( [facility] prolapse prolapse 12:00:00 AM [facility] EDT Care) E03.9 Hypothyroidism Hypothyroidism Problem 07/06/2018 eCW3 ( [facility] (acquired) (acquired) 12:00:00 AM [facility] EDT Care) E04.1 Thyroid nodule Thyroid nodule Problem 07/03/2018 eCW3 ( [facility] 12:00:00 AM [facility] EDT Care) E04.9 Goiter Goiter Problem 07/03/2018 eCW3 ([facility] 12:00:00 AM [facility] EDT Care) E04.1 Thyroid nodule Thyroid nodule Problem 07/03/2018 eCW3 ( [facility] 12:00:00 AM [facility] EDT Care) E04.9 Goiter Goiter Problem 07/03/2018 eCW3 ([facility] 12:00:00 AM [facility] EDT Care) E04.1 Thyroid nodule Thyroid nodule Problem 07/03/2018 eCW3 ( [facility] 12:00:00 AM [facility] EDT Care) E04.9 Goiter Goiter Problem 07/03/2018 eCW3 ([facility] 12:00:00 AM [facility] EDT Care) E04.1 Thyroid nodule Thyroid nodule Problem 07/03/2018 eCW3 ( [facility] 12:00:00 AM [facility] EDT Care) E04.9 Goiter Goiter Problem 07/03/2018 eCW3 ([facility] 12:00:00 AM [facility] EDT Care) E04.1 Thyroid nodule Thyroid nodule Problem 07/03/2018 eCW3 ( [facility] 12:00:00 AM [facility] EDT Care) H52.4 Presbyopia of both Presbyopia of both Problem 9 eCW3 ([facility] eyes eyes 12:00:00 AM [facility] EST Care) H25.13 Nuclear age-related Nuclear age-related Problem 019 eCW3 ([facility] cataract, both eyes cataract, both eyes 12:00:0 0 AM [facility] EST Care) H52.4 Presbyopia of both Presbyopia of both Problem 9 eCW3 ([facility] eyes eyes 12:00:00 AM [facility] EST Care) H25.13 Nuclear age-related Nuclear age-related Problem 019 eCW3 ([facility] cataract, both eyes cataract, both eyes 12:00:0 0 AM [facility] EST Care) H52.4 Presbyopia of both Presbyopia of both Problem 9 eCW3 ([facility] eyes eyes 12:00:00 AM [facility] EST Care) H25.13 Nuclear age-related Nuclear age-related Problem 019 eCW3 ([facility] cataract, both eyes cataract, both eyes 12:00:0 0 AM [facility] EST Care) H52.4 Presbyopia of both Presbyopia of both Problem 9 eCW3 ([facility] eyes eyes 12:00:00 AM [facility] EST Care) H25.13 Nuclear age-related Nuclear age-related Problem 019 eCW3 ([facility] cataract, both eyes cataract, both eyes 12:00:0 0 AM [facility] EST Care) H04.123 Dry eyes, bilateral Dry eyes, bilateral Problem 019 eCW3 (Hall 12:00:00 AM [facility] EST Care) H04.123 Dry eyes, bilateral Dry eyes, bilateral Problem 019 eCW3 (Hall 12:00:00 AM [facility] EST Care) H04.123 Dry eyes, bilateral Dry eyes, bilateral Problem 019 eCW3 ([facility] 12:00:00 AM [facility] EST Care) H04.123 Dry eyes, bilateral Dry eyes, bilateral Problem 019 eCW3 ([facility] 12:00:00 AM [facility] EST Care) K76.0 Fatty liver Fatty liver Problem 02/01/2018 eCW3 ([facility] 12:00:00 AM [facility] EDT Care) M51.34 Other Other Problem 02/01/2018 eCW3 ([facility] intervertebral disc intervertebral disc 12:00:0 0 AM [facility] degeneration, degeneration, EDT Care) thoracic region thoracic region E55.9 Vitamin D Vitamin D Problem 02/01/2018 eCW3 ([facility] deficiency deficiency 12:00:00 AM [facility] EDT Care) M51.34 Other Other Problem 02/01/2018 eCW3 ([facility] intervertebral disc intervertebral disc 12:00:0 0 AM [facility] degeneration, degeneration, EDT Care) thoracic region thoracic region E55.9 Vitamin D Vitamin D Problem 02/01/2018 eCW3 ([facility] deficiency deficiency 12:00:00 AM [facility] EDT Care) K76.0 Fatty liver Fatty liver Problem 02/01/2018 eCW3 ([facility] 12:00:00 AM [facility] EDT Care) M51.34 Other Other Problem 02/01/2018 eCW3 ([facility] intervertebral disc intervertebral disc 12:00:0 0 AM [facility] degeneration, degeneration, EDT Care) thoracic region thoracic region K76.0 Fatty liver Fatty liver Problem 02/01/2018 eCW3 ([facility] 12:00:00 AM [facility] EDT Care) E55.9 Vitamin D Vitamin D Problem 02/01/2018 eCW2 ([facility] deficiency deficiency 12:00:00 AM [facility] EDT Care) K76.0 Fatty liver Fatty liver Problem 02/01/2018 eCW2 ([facility] 12:00:00 AM [facility] EDT Care) N85.00 Endometrial Endometrial Problem 02/01/2018 eCW2 ([facility] hyperplasia, hyperplasia, 12:00:00 AM [facility] unspecified unspecified EDT Care) M51.34 Other Other Problem 02/01/2018 eCW2 ([facility] intervertebral disc intervertebral disc 12:00:0 0 AM [facility] degeneration, degeneration, EDT Care) thoracic region thoracic region M51.34 Other Other Problem 02/01/2018 eCW3 ([facility] intervertebral disc intervertebral disc 12:00:0 0 AM [facility] degeneration, degeneration, EDT Care) thoracic region thoracic region E55.9 Vitamin D Vitamin D Problem 02/01/2018 eCW3 ([facility] deficiency deficiency 12:00:00 AM [facility] EDT Care) K76.0 Fatty liver Fatty liver Problem 02/01/2018 eCW3 ([facility] 12:00:00 AM [facility] EDT Care) N85.00 Endometrial Endometrial Problem 02/01/2018 eCW3 ([facility] hyperplasia, hyperplasia, 12:00:00 AM [facility] unspecified unspecified EDT Care) K76.0 Fatty liver Fatty liver Problem 02/01/2018 eCW3 ([facility] 12:00:00 AM [facility] EDT Care) N85.00 Endometrial Endometrial Problem 02/01/2018 eCW3 ([facility] hyperplasia, hyperplasia, 12:00:00 AM [facility] unspecified unspecified EDT Care) M51.34 Other Other Problem 02/01/2018 eCW3 ([facility] intervertebral disc intervertebral disc 12:00:0 0 AM [facility] degeneration, degeneration, EDT Care) thoracic region thoracic region N85.00 Endometrial Endometrial Problem 02/01/2018 eCW3 ([facility] hyperplasia, hyperplasia, 12:00:00 AM [facility] unspecified unspecified EDT Care) M51.34 Other Other Problem 02/01/2018 eCW3 ([facility] intervertebral disc intervertebral disc 12:00:0 0 AM [facility] degeneration, degeneration, EDT Care) thoracic region thoracic region F51.01 Primary insomnia Primary insomnia Problem 01/10/2018 eC W3 ([facility] 12:00:00 AM [facility] EDT Care) K80.20 Gallstones Gallstones Problem 01/10/2018 eCW3 ([facility] 12:00:00 AM [facility] EDT Care) K80.20 Gallstones Gallstones Problem 01/10/2018 eCW3 ([facility] 12:00:00 AM [facility] EDT Care) F51.01 Primary insomnia Primary insomnia Problem 01/10/2018 eC W3 ([facility] 12:00:00 AM [facility] EDT Care) K80.20 Gallstones Gallstones Problem 01/10/2018 eCW2 ([facility] 12:00:00 AM [facility] EDT Care) F51.01 Primary insomnia Primary insomnia Problem 01/10/2018 eC W2 (Hall 12:00:00 AM [facility]) Surgeries/Procedures Procedure Description Date Indications Data Source(s) No Known procedures No Known procedures e CW2 ([facility]) No Known procedures No Known procedures e CW2 ([facility]) Results ID Date Data Source [id number] 11/05/2019 09:38:00 AM EDT [facility] Name Value Range Interpretation Code Description Data Courtney rce(s) Supporting Document(s ) [facility] was ordered by [facility] and reported by [facility]. Procedure Social History Code Duration Value Status Description Data Source(s ) Smoking 12/14/2019 Never Smoker completed Never Smoker eCW3 ([place] 12:00:00 AM [facility]) Smoking 12/14/2019 Never Smoker completed Never Smoker eCW3 ([place] 12:00:00 AM [facility]) Smoking 09/27/2019 Never Smoker completed Never Smoker eCW3 ([place] [facility] 12:00:00 AM [facility]) Smoking 09/27/2019 Never Smoker completed Never Smoker eCW3 ([place] 12:00:00 AM [facility]) Smoking 07/05/2019 Never Smoker completed Never Smoker eCW3 ([place] [facility] 12:00:00 AM [facility]) Smoking 07/05/2019 Never Smoker completed Never Smoker eCW3 ([place] [facility] 12:00:00 AM [facility]) Smoking 10/24/2018 Never Smoker completed Never Smoker eCW3 ([place] [facility] 12:00:00 AM [facility]) Smoking 08/23/2018 Never Smoker completed Never Smoker eCW3 ([place] [facility] 12:00:00 AM [facility]) Smoking 07/08/2018 Never Smoker completed Never Smoker eCW3 ([place] 12:00:00 AM [facility]) Never Smoker completed Never Smoker eCW3 ([facility]) Never Smoker completed Never Smoker eCW3 ([facility]) Never Smoker completed Never Smoker eCW3 ([facility]) Never Smoker completed Never Smoker eCW3 [facility]) Never Smoker completed Never Smoker eCW3 ([facility]) Never Smoker completed Never Smoker eCW3 ([facility]) Smoking Unknown if ever completed Unknown if ever eCW2 ([place] smoked smoked [facility]) Smoking Never Smoker completed Never Smoker eCW2 ([facility]) Never Smoker completed Never Smoker eCW3 ([facility]) Never Smoker completed Never Smoker eCW3 ([facility]) Never Smoker completed Never Smoker eCW3 ([facility]) Vital Signs ID Date Data Source UNK Name Value Range Interpretation Code Description Data Source(s) Diastolic blood 64 mm[Hg] 64 mm[Hg] eCW3 ([facility]) Systolic blood 101 mm[Hg] 101 mm[Hg] eCW3 ([facility]) Body temperature 98.2 [degF] 98.2 [degF] eCW3 ( [facility]) Body mass index 44.35 kg/m2 44.35 kg/m2 eCW3 ([place] [facility] (BMI) [Ratio] [facility]) Body weight 238 [lb_av] 238 [lb_av] eCW3 ([facility]) Body height 61.42 [in_i] 61.42 [in_i] eCW3 ([facility]) Diastolic blood 73 mm[Hg] 73 mm[Hg] eCW3 ([facility]) Systolic blood 117 mm[Hg] 117 mm[Hg] eCW3 ([facility]) Body temperature 98.8 [degF] 98.8 [degF] eCW3 ( [facility]) Body mass index 44.35 kg/m2 44.35 kg/m2 eCW3 ([place] (BMI) [Ratio] [facility]) Body weight 238 [lb_av] 238 [lb_av] eCW3 ([facility]) Body height 61.42 [in_i] 61.42 [in_i] eCW3 ([facility]) Diastolic blood 73 mm[Hg] 73 mm[Hg] eCW3 ([facility]) Systolic blood 111 mm[Hg] 111 mm[Hg] eCW3 ([facility]) Body temperature 97.8 [degF] 97.8 [degF] eCW3 ( [facility]) Body mass index 43.98 kg/m2 43.98 kg/m2 eCW3 ([place] (BMI) [Ratio] [facility]) Body weight 236 [lb_av] 236 [lb_av] eCW3 ([facility]) Body height 61.42 [in_i] 61.42 [in_i] eCW3 ([facility]) Diastolic blood 66 mm[Hg] 66 mm[Hg] eCW3 ([facility]) Systolic blood 95 mm[Hg] 95 mm[Hg] eCW3 ([facility]) Body temperature 98.3 [degF] 98.3 [degF] eCW3 ( [facility]) Heart rate 20 /min 20 /min eCW3 ([facility]) Body mass index 43.61 kg/m2 43.61 kg/m2 eCW3 ([place] (BMI) [Ratio] [facility]) Body weight 234 [lb_av] 234 [lb_av] eCW3 ([facility]) Body height 61.42 [in_i] 61.42 [in_i] eCW3 ([facility]) Diastolic blood 68 mm[Hg] 68 mm[Hg] eCW3 ([facility]) Systolic blood 107 mm[Hg] 107 mm[Hg] eCW3 ([facility]) Body temperature 98.3 [degF] 98.3 [degF] eCW3 ( [facility]) Body mass index 42.86 kg/m2 42.86 kg/m2 eCW3 ([place] (BMI) [Ratio] [facility]) Body weight 230 [lb_av] 230 [lb_av] eCW3 ([facility]) Body height 61.42 [in_i] 61.42 [in_i] eCW3 ([facility]) Diastolic blood 78 mm[Hg] 78 mm[Hg] eCW3 ([facility]) Systolic blood 120 mm[Hg] 120 mm[Hg] eCW3 ([facility]) Body temperature 98.0 [degF] 98.0 [degF] eCW3 ( [facility]) Heart rate 20 /min 20 /min eCW3 ([facility]) Body mass index 44.17 kg/m2 44.17 kg/m2 eCW3 ([place] (BMI) [Ratio] [facility]) Body weight 237 [lb_av] 237 [lb_av] eCW3 ([facility]) Body height 61.42 [in_i] 61.42 [in_i] eCW3 ([facility]) Diastolic blood 73 mm[Hg] 73 mm[Hg] eCW3 ([facility]) Systolic blood 113 mm[Hg] 113 mm[Hg] eCW3 ([facility]) Body temperature 98.3 [degF] 98.3 [degF] eCW3 ( [facility]) Body mass index 43.79 kg/m2 43.79 kg/m2 eCW3 ([place] (BMI) [Ratio] [facility]) Body weight 235 [lb_av] 235 [lb_av] eCW3 ([facility]) Body height 61.42 [in_i] 61.42 [in_i] eCW3 ([facility]) Diastolic blood 72 mm[Hg] 72 mm[Hg] eCW3 ([facility]) Systolic blood 114 mm[Hg] 114 mm[Hg] eCW3 ([facility]) Body temperature 98.3 [degF] 98.3 [degF] eCW3 ( [facility]) Body mass index 42.86 kg/m2 42.86 kg/m2 eCW3 ([place] (BMI) [Ratio] [facility]) Body weight 230 [lb_av] 230 [lb_av] eCW3 ([facility]) Body height 61.42 [in_i] 61.42 [in_i] eCW3 ([facility]) Body height 61.42 [in_i] 61.42 [in_i] eCW3 ([facility]) Diastolic blood 61 mm[Hg] 61 mm[Hg] eCW2 ([facility] pressure [facility]) Systolic blood 94 mm[Hg] 94 mm[Hg] eCW2 ([facility] on pressure [facility]) Body temperature 98.0 [degF] 98.0 [degF] eCW2 ( [facility]) Body mass index 43.98 kg/m2 43.98 kg/m2 eCW2 ([facility] (BMI) [Ratio] [facility]) Body weight 236 [lb_av] 236 [lb_av] eCW2 ([facility]) Body height 61.42 61.42 [in_us] eCW2 ([facility] on [in_us] [facility]) Patient Treatment Plan of Care Planned Activity Planned Date Details Description Data Source (s) Daily Multivitamin - 07/05/2019 12:00:00 eCW3 ([facility]) Daily Multivitamin - 07/05/2019 12:00:00 eCW3 ([facility]) Vitamin D (Ergocalciferol) 01/28/2019 12:00:00 eCW3 ([facility] [id number] UNIT AM [facility]) Iuakqjsi-Frvzj-Elwwhkaazu 01/28/2019 12:00:00 eCW3 ([facility] Acid 400-80-30 MG AM ED Health Car e) Vitamin D (Ergocalciferol) 01/28/2019 12:00:00 eCW3 ([facility] [id number] UNIT [facility]) Umzyqptq-Gvxxw-Pedvttseos 01/28/2019 12:00:00 eCW3 ([facility] Acid 400-80-30 MG AM EDT Health Car e) Hydroxyzine Hydrochloride 01/18/2019 12:00:00 eCW3 ([facility] 50 MG Oral Tablet AM ED Health Car e) Hydroxyzine Hydrochloride 01/18/2019 12:00:00 eCW3 ([facility] 50 MG Oral Tablet AM ED Health Car e) Melatonin 10 mg 10/24/2018 12:00:00 eCW3 ([facility]) RA Panty Liners - 07/06/2018 12:00:00 eCW 3 ([facility]) ammonium lactate 120 MG/ML 07/06/2018 12:00:00 eCW3 ([place] Topical Cream [Lac-Hydrin] AM EDT [facility]) Levothyroxine Sodium 0.025 02/01/2018 12:00:00 eCW2 ([place] [facility] MG Oral Tablet [Synthroid] AM EDT [facility]) Ergocalciferol [id number] UNT 02/01/2018 12:00:00 eCW2 ([place] [facility] Oral Capsule AM [facility]) Mirtazapine 7.5 MG Oral eCW3 ([facility] Tablet Health Care) Mirtazapine 7.5 MG Oral eCW3 ([facility] Tablet Health Care) Ketotifen 0.25 MG/ML eCW3 ([facility] Health C are) [Zaditor] Levothyroxine Sodium 0.05 eC W3 ([place] [facility] Oral Tablet Health Care) Daily Multivitamin - eCW3 ([facility]) Ketotifen 0.25 MG/ML eCW3 ([facility] Health C are) [Zaditor] Levothyroxine Sodium 0.05 eC W3 ([place] [facility] Oral Tablet Health Care) Daily Multivitamin - eCW3 ([facility]) Levothyroxine Sodium 0.05 eC W3 ([facility] Oral Tablet [facility]) Levothyroxine Sodium 0.05 eC W3 ([facility]) Levothyroxine Sodium 0.05 eC W3 ([facility]) Levothyroxine Sodium 0.025 e CW3 ([facility] Oral Tablet [facility])
[2020-01-14 18:07] LABS: ALBUMIN 2.8 g/dl (3.4-5.0); ALK PHOS 70 U/L (45-117); ANION GAP 7 MMOL/L (8-16); BILIRUBIN,TOTAL 0.2 mg/dL (0.2-1); BLOOD UREA NITROGEN 10.6 mg/dL (7-18); CALCIUM 9.4 mg/dL (8.5-10.1); CHLORIDE 105 mmol/L (98-107); CO2 27 mmol/L (21-32); CREATININE 0.6 mg/dL (0.55-1.3); GLUCOSE,RANDOM 100 mg/dL (74-106); POTASSIUM 4.5 mmol/L (3.5-5.1); SGOT/AST 37 U/L (15-37); SGPT/ALT 21 U/L (13-61); SODIUM 139 mmol/L (136-145); TOT PROT 8.4 g/dl (6.4-8.2)
--- NOTE | 2020-01-14 18:12 | PDOC ---
Documentation entered by Angela Owens SCRIBE, acting as scribe for Thelma Wilhelm MD. Thelma Wilhelm MD: This documentation has been prepared by the Graciela carlin Brenda, SCRIBE, under my direction and personally reviewed by me in its entirety. I confirm that the documentation accurately reflects all work, treatment, procedures, and medical decision making performed by me. Attending Attestation - Resident Resident Name: Hussain Valente - ED Attending Attestation I have performed the following: I have examined & evaluated the patient, The case was reviewed & discussed with the resident, I agree w/resident's findings & plan, Exceptions are as noted - HPI HPI: 01/14/20 17:44 The patient is a 54 year old female with a significant PMH of who presents to the ED from urgent care for evaluation of abnormal ECG. She also reports 1 month of palpiattions, shortness of breath and fatigue. The patient also endorses 1 month of intermittent headaches. The patient denies chest pain, fever/chills, nausea/vomitting, constipation/diarrhea. Allergies: NKA - Physicial Exam PE: 01/14/20 17:46 GENERAL: Well-appearing, well-nourished. No apparent distress. HEENT: Normocephalic, atraumatic. PERRL, EOM intact. CARDIOVASCULAR: Normal S1, S2. Regular rate and rhythm. PULMONARY: Clear to auscultation bilaterally. ABDOMEN: Soft, non-distended, non-tender. EXTREMITIES: Normal ROM in all four extremities. No gross deformities. SKIN: Warm, dry. No rash NEUROLOGICAL: No focal neurological deficits. 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 Therre is no evidence of cellulitis. She had a duplex doppler in October and it was negative Discharge - Discharge Information Problems reviewed: Yes Clinical Impression/Diagnosis: Palpitations Condition: Good Disposition: HOME - Follow up/Referral Referrals: Celestina Baptiste DO [Primary Care Provider] - - Patient Discharge Instructions Patient Printed Discharge Instructions: DI for Hyperthyroidism Additional Instructions: You were seen in the ED for complaints of high heart rate. In the ED you were evaluated with bloodwork Your results were unremarkable. There does not appear to be an acute need for immediate hospitalization. You are advised to follow up with your Primary Care Physician within 1 week. Continue with the appointment to see the endocrine doctor. Return to the ED immediately if you experience worsening heart palpitation, chest pain, nausea vomiting, or any other new symptoms. Fue visto en el servicio de urgencias por quejas de frecuencia cardaca glenn. En el servicio de urgencias te evaluaron con anlisis de ana paula Tus resultados no fueron notables. No parece apollo agnieszka necesidad aguda de hospitalizacin inmediata. Se le recomienda hacer un seguimiento con wolf mdico de atencin primaria en el plazo de 1 semana. Contine con la carmine para elias al mdico endocrino. Regrese al servicio de urgencias de inmediato si experimenta un empeoramiento de las palpitaciones del corazn, dolor de pecho, nuseas, vmitos o cualquier otro sntoma nuevo. Print Language: CAPE VERDEAN - Post Discharge Activity
--- NOTE | 2020-01-15 10:01 | EKG ---
Test Reason : Blood Pressure : / mmHG Vent. Rate : 113 BPM Atrial Rate : 113 BPM P-R Int : 136 ms QRS Dur : 072 ms QT Int : 328 ms P-R-T Axes : 013 030 003 degrees QTc Int : 449 ms SINUS TACHYCARDIA LOW VOLTAGE QRS NONSPECIFIC ST AND T WAVE ABNORMALITY ABNORMAL ECG WHEN COMPARED WITH ECG OF 12-NOV-2019 11:30, ST NOW DEPRESSED IN INFERIOR LEADS Confirmed by Brian Hemphill ([id number]) on 01/15/2020 10:00:45 AM Referred By: Confirmed By:Brian Hemphill
== END 2020-01-14 21:11 | disposition home or self-care (01) ==
LOC: JER 15:16
DX: R00.2 Palpitations (principal)
CPT/HCPCS: 36415; 71046-TC-FY; 80053; 82550; 84439; 84443; 84484; 85025; 93005; 93010; 99285-25

== ENCOUNTER 2024-02-08 20:06 | Emergency (ER) | payer OTHER ==
[2024-02-08 20:12] VITALS: BP 134/82; PULSE 92; RESP 18; TEMP 97.9; BMI 42.0
[2024-02-08] MEDS ORDERED: DIPHTH,PERTUSS(ACELL),TET 0.5 ML DISP.SYRIN IM ONE (21:00)
[2024-02-08] MEDS: DIPHTH,PERTUSS(ACELL),TET 0.5 ML DISP.SYRIN IM ONE (21:01)
[2024-02-08] MEDS ORDERED: ACETAMINOPHEN 500 MG TABLET (FP) ONE (21:26)
[2024-02-08] MEDS ORDERED: ACETAMINOPHEN 500 MG TABLET (FP) PO ONE (21:30)
== END 2024-02-08 21:41 | disposition home or self-care (01) ==
LOC: JERFT 20:06
PROC: 0XQWXZZ Repair Left Little Finger, External Approach (ICD-10-PCS; principal; 2024-02-08)
PROC: 3E0234Z Introduction of Serum, Toxoid and Vaccine into Muscle, Percutaneous Approach (ICD-10-PCS; 2024-02-08)
DX: S61.217A Laceration without foreign body of left little finger without damage to nail, initial encounter (principal); W26.0XXA Contact with knife, initial encounter; Z23 Encounter for immunization
CPT/HCPCS: 12001-25; 90471; 90715; 99284-25